=== PATIENT | female | born 1985 | race Caucasian/White ===

== ENCOUNTER 2017-03-26 17:14 | Emergency (ER) | payer OTHER ==
[~2017-03-26] VITALS: Ht 157.5 cm; Wt 98.6 kg
[~2017-03-26 17:14] MED LIST: PRILOSEC40 MG PO; WELLBUTRIN SR150 MG PO; ZYRTEC10 M3 PO
[2017-03-26 18:15] LABS: HEMATOCRIT 40.2 % (36.0-46.0); MCH 26.4 PG (29.0-34.0); MCHC 32.3 G/DL (30.0-36.0); MCV 81.5 FL (83-99); PLATELET COUNT 339 K/uL (156-360); RBC DIS.WIDTH-CV 13.5 % (11.8-14.6); RBC DIS.WIDTH-SD 40.2 % (39-53); RED BLOOD COUNT 4.93 M/uL (3.80-5.20); WHITE BLOOD COUNT 10.6 K/uL (4.1-10.2)
[2017-03-26 18:18] LABS: ADD MIUA? YES; BILIRUBIN NEGATIVE; BLOOD MODERATE; COLOR YELLOW ((YELLOW)); GLUCOSE (STRIP) NEGATIVE; KETONES NEGATIVE; LEUKOCYTES TRACE; NITRITE NEGATIVE; PROTEIN (STRIP) NEGATIVE; SPECIFIC GRAVITY 1.015 (1.000-1.030); UROBILINOGEN 0.2 MG/DL (0.2-1.0)
[2017-03-26 18:26] LABS: CHLORIDE 104 mEq/L (99-109); POTASSIUM 3.7 mEq/L (3.7-5.4); SODIUM 137 mEq/L (136-147)
[2017-03-26 18:28] LABS: GLUCOSE 96 mg/dL (70-99)
[2017-03-26 18:29] LABS: ANION GAP 12 MEQ/L (2-14)
[2017-03-26 18:30] LABS: TOTAL BILIRUBIN 0.4 mg/dL (0.0-1.0)
[2017-03-26 18:32] LABS: ALKALINE PHOSPHATASE 102 IU/L (3-129); GFR ESTIMATE (CALCULATED) > 59 mL/min/
[2017-03-26 18:33] LABS: UREA NITROGEN (BUN) 8 mg/dL (9-23)
[2017-03-26 18:35] LABS: LIPASE 15 U/L (1.0-51.0)
[2017-03-26 18:35] LABS: BACTERIA 1+ /HPF; EPITHELIAL CELLS 1+ /HPF; MUCUS 2+ /LPF; RED BLOOD CELLS 0-5 /HPF (0-5); WHITE BLOOD CELLS 0-5 /HPF (0-5)
[2017-03-26 18:43] LABS: QUANTITATIVE HCG < 4.0 MIU/ML
[2017-03-26] MEDS ORDERED: OMEPRAZOLE40 M1 PO (20:15)
[2017-03-26] MEDS ORDERED: BENTYL20 MG PO (20:15)
[2017-03-26 20:46] VITALS: BP 144/81
== END 2017-03-26 20:46 | disposition home or self-care (01) ==
LOC: EME 17:14
PROVIDERS: Physician Assistant
DX: R10.13 Epigastric pain (principal); Z87.891 Personal history of nicotine dependence; Z90.49 Acquired absence of other specified parts of digestive tract
CPT/HCPCS: 71020; 74176; 80053; 81003; 83690; 84702; 85027; 99281; 99284

== ENCOUNTER 2017-04-05 16:40 | Emergency (ER) | payer OTHER ==
[~2017-04-05] VITALS: Ht 160 cm; Wt 99.9 kg
[~2017-04-05 16:40] MED LIST changes: +BENTYL20 MG PO; +OMEPRAZOLE40 M1 PO
[2017-04-05 17:25] LABS: MCH 25.9 PG (29.0-34.0); MCHC 31.8 G/DL (30.0-36.0); MCV 81.4 FL (83-99); MEAN PLAT.VOLUME 8.8 uM^3 (9.5-12.4); PLATELET COUNT 378 K/uL (156-360); RBC DIS.WIDTH-CV 13.8 % (11.8-14.6); RBC DIS.WIDTH-SD 41.1 % (39-53); RED BLOOD COUNT 4.79 M/uL (3.80-5.20); WHITE BLOOD COUNT 12.8 K/uL (4.1-10.2)
[2017-04-05 17:31] LABS: ADD MIUA? YES; BILIRUBIN NEGATIVE; BLOOD MODERATE; COLOR YELLOW ((YELLOW)); GLUCOSE (STRIP) NEGATIVE; KETONES NEGATIVE; LEUKOCYTES NEGATIVE; NITRITE NEGATIVE; PROTEIN (STRIP) NEGATIVE; SPECIFIC GRAVITY 1.011 (1.000-1.030); UROBILINOGEN 0.2 MG/DL (0.2-1.0)
[2017-04-05 17:37] LABS: CHLORIDE 104 mEq/L (99-109); POTASSIUM 3.7 mEq/L (3.7-5.4); SODIUM 139 mEq/L (136-147)
[2017-04-05 17:39] LABS: GLUCOSE 102 mg/dL (70-99)
[2017-04-05 17:40] LABS: ANION GAP 11 MEQ/L (2-14)
[2017-04-05 17:41] LABS: TOTAL BILIRUBIN 0.4 mg/dL (0.0-1.0)
[2017-04-05 17:43] LABS: ALKALINE PHOSPHATASE 96 IU/L (3-129); GFR ESTIMATE (CALCULATED) > 59 mL/min/
[2017-04-05 17:44] LABS: UREA NITROGEN (BUN) 8 mg/dL (9-23)
[2017-04-05 17:51] LABS: QUANTITATIVE HCG < 4.0 MIU/ML
[2017-04-05 17:54] LABS: BACTERIA 1+ /HPF; CASTS NONE SEEN /LPF; EPITHELIAL CELLS 2+ /HPF; MUCUS NONE SEEN /LPF; RED BLOOD CELLS NONE SEEN /HPF (0-5); UCUL ADDED? NO; WHITE BLOOD CELLS RARE /HPF (0-5)
[2017-04-05] MEDS ORDERED: NORCO 5/3251 TABLET PO (19:53)
[2017-04-05 20:10] VITALS: BP 155/104
== END 2017-04-05 20:12 | disposition home or self-care (01) ==
LOC: EME 16:40
DX: R10.32 Left lower quadrant pain (principal); Z87.891 Personal history of nicotine dependence
CPT/HCPCS: 74177; 80053; 81003; 84702; 85027; 99281; 99284; J7030

== ENCOUNTER 2017-04-08 20:30 | Emergency (ER) | payer OTHER ==
[~2017-04-08] VITALS: Ht 157.5 cm; Wt 99.0 kg
[~2017-04-08 20:30] MED LIST changes: +NORCO 5/3251 TABLET PO
[2017-04-08 21:36] LABS: ADD MIUA? YES; BILIRUBIN SMALL; BLOOD NEGATIVE; GLUCOSE (STRIP) 50; KETONES 5; LEUKOCYTES NEGATIVE; NITRITE NEGATIVE; PROTEIN (STRIP) 100; SPECIFIC GRAVITY 1.043 (1.000-1.030)
[2017-04-08 21:40] LABS: COLOR DK YELLOW ((YELLOW))
[2017-04-08 21:56] LABS: BACTERIA 2+ /HPF; RED BLOOD CELLS 0-5 /HPF (0-5); UCUL ADDED? YES; WHITE BLOOD CELLS 0-5 /HPF (0-5)
[2017-04-08 21:57] LABS: MUCUS 2+ /LPF
[2017-04-08 21:58] LABS: AMORPHOUS URATES CRYSTALS RARE; CASTS PRESENT /LPF; CRYSTALS PRESENT; EPITHELIAL CELLS 3+ /HPF; FINE GRANULAR CASTS RARE /LPF
[2017-04-08 22:27] LABS: HEMATOCRIT 32.4 % (36.0-46.0); MCH 26.4 PG (29.0-34.0); MCHC 32.4 G/DL (30.0-36.0); MCV 81.4 FL (83-99); MEAN PLAT.VOLUME 8.8 uM^3 (9.5-12.4); PLATELET COUNT 357 K/uL (156-360); RBC DIS.WIDTH-CV 13.8 % (11.8-14.6); RBC DIS.WIDTH-SD 40.8 % (39-53); RED BLOOD COUNT 3.98 M/uL (3.80-5.20); WHITE BLOOD COUNT 17.7 K/uL (4.1-10.2)
[2017-04-08 22:38] LABS: CHLORIDE 104 mEq/L (99-109); POTASSIUM 4.1 mEq/L (3.7-5.4); SODIUM 135 mEq/L (136-147)
[2017-04-08 22:40] LABS: GLUCOSE 145 mg/dL (70-99)
[2017-04-08 22:41] LABS: ANION GAP 10 MEQ/L (2-14)
[2017-04-08 22:43] LABS: ALKALINE PHOSPHATASE 92 IU/L (3-129)
[2017-04-08 22:44] LABS: GFR ESTIMATE (CALCULATED) > 59 mL/min/
[2017-04-08 22:45] LABS: UREA NITROGEN (BUN) 13 mg/dL (9-23)
[2017-04-08 22:48] LABS: TOTAL BILIRUBIN 0.3 mg/dL (0.0-1.0)
[2017-04-08 22:53] LABS: QUANTITATIVE HCG < 4.0 MIU/ML
[2017-04-09 02:31] LABS: HEMATOCRIT 27.4 % (36.0-46.0); MCV 81.8 FL (83-99)
[2017-04-09] MEDS ORDERED: ENDOCET 5-3251 EACH PO ×2 (05:17→13:27)
[2017-04-09] MEDS ORDERED: IBUPROFEN800 MG PO (05:17)
[2017-04-09 06:41] VITALS: BP 113/62
[2017-04-09 07:45] VITALS: BP 111/65
[2017-04-09 10:40] VITALS: BP 107/70
[2017-04-09] MEDS ORDERED: WELLBUTRIN XL150 MG PO (10:49)
[2017-04-09] MEDS ORDERED: PROZAC20 MG PO (10:50)
[2017-04-09] MEDS ORDERED: ZANTAC150 MG PO (10:51)
[2017-04-09] MEDS ORDERED: NORCO 5/3251 TABLET PO (10:52)
[2017-04-09 11:29] LABS: EOSINOPHIL (%) 0.1 % (0-5); IMMATURE GRANULOCYTE (%) 0.5 % (0.0-0.7); IMMATURE GRANULOCYTE COUNT 0.1 K/uL; INSTRUMENT ABS NEUTROPHIL CT 10.2 K/uL; LYMPHOCYTE COUNT 2.1 K/uL (1.0-2.8); MCH 26.7 PG (29.0-34.0); MCHC 32.5 G/DL (30.0-36.0); MCV 82.2 FL (83-99); MEAN PLAT.VOLUME 8.8 uM^3 (9.5-12.4); MONOCYTE (%) 7.2 % (3-12); NEUTROPHIL (%) 76.4 % (45-76); NEUTROPHIL COUNT 10.2 K/uL (1.8-6.4); PLATELET COUNT 276 K/uL (156-360); RBC DIS.WIDTH-CV 14.1 % (11.8-14.6); RBC DIS.WIDTH-SD 42.1 % (39-53); WHITE BLOOD COUNT 13.4 K/uL (4.1-10.2)
[2017-04-09 11:30] LABS: RED BLOOD COUNT 2.92 M/uL (3.80-5.20)
[2017-04-09] MEDS ORDERED: STOOL SOFTENER100 MG PO (13:39)
[2017-04-09] MEDS ORDERED: VITRON-C TABLE1 EACH PO (13:39)
[2017-04-10 13:36] LABS: CHLAMYDIA TRACHOMATIS NEGATIVE; NEISSERIA GONORRHOEAE NEGATIVE
== END 2017-04-09 14:57 | disposition home or self-care (01) ==
LOC: EME 20:30 → EDOF 04-09 03:10 → 2EASTP 04-09 03:10 → ENRESERV 04-09 03:18 → EDOF 04-09 04:50 → 2EASTP 04-09 06:17
PROVIDERS: Obstetrics & Gynecology; Physician Assistant
PROC: 0W9F4ZZ Drainage of Abdominal Wall, Percutaneous Endoscopic Approach (ICD-10-PCS; principal; 2017-04-09)
DX: N83.201 Unspecified ovarian cyst, right side (principal); K66.1 Hemoperitoneum; R11.2 Nausea with vomiting, unspecified; D72.829 Elevated white blood cell count, unspecified; K21.9 Gastro-esophageal reflux disease without esophagitis; D64.9 Anemia, unspecified; R73.03 Prediabetes; Z87.891 Personal history of nicotine dependence
CPT/HCPCS: 74177; 76856; 80053; 81003; 84702; 85014; 85018; 85025; 85027; 86900; 86901; 86920; 87086; 87210; 87491; 87591; 99281; 99285; G0378; J1170; J2250; J2405; J3010; J7030; J7120

== ENCOUNTER 2017-05-20 08:42 | Emergency (ER) | payer OTHER ==
[~2017-05-20] VITALS: Ht 157.5 cm; Wt 93.3 kg
[~2017-05-20 08:42] MED LIST changes: +ENDOCET 5-3251 EACH PO; +IBUPROFEN800 MG PO; +PROZAC20 MG PO; +STOOL SOFTENER100 MG PO; +VITRON-C TABLE1 EACH PO; +WELLBUTRIN XL150 MG PO; +ZANTAC150 MG PO
[2017-05-20 09:42] LABS: HEMATOCRIT 35.2 % (36.0-46.0); MCH 24.5 PG (29.0-34.0); MCHC 31.8 G/DL (30.0-36.0); MCV 76.9 FL (83-99); MEAN PLAT.VOLUME 9.1 uM^3 (9.5-12.4); PLATELET COUNT 430 K/uL (156-360); RBC DIS.WIDTH-CV 13.8 % (11.8-14.6); RBC DIS.WIDTH-SD 38.3 % (39-53); RED BLOOD COUNT 4.58 M/uL (3.80-5.20); WHITE BLOOD COUNT 10.1 K/uL (4.1-10.2)
[2017-05-20 09:53] LABS: CHLORIDE 102 mEq/L (99-109); POTASSIUM 3.1 mEq/L (3.7-5.4); SODIUM 139 mEq/L (136-147)
[2017-05-20 09:55] LABS: GLUCOSE 114 mg/dL (70-99)
[2017-05-20 09:56] LABS: ANION GAP 12 MEQ/L (2-14)
[2017-05-20 09:57] LABS: TOTAL BILIRUBIN 0.4 mg/dL (0.0-1.0)
[2017-05-20 09:58] LABS: ALKALINE PHOSPHATASE 111 IU/L (3-129)
[2017-05-20 09:59] LABS: GFR ESTIMATE (CALCULATED) > 59 mL/min/
[2017-05-20 10:00] LABS: UREA NITROGEN (BUN) 6 mg/dL (9-23)
[2017-05-20 10:10] LABS: QUANTITATIVE HCG < 4.0 MIU/ML
[2017-05-20 11:10] LABS: ADD MIUA? YES; BILIRUBIN NEGATIVE; BLOOD MODERATE; COLOR YELLOW ((YELLOW)); GLUCOSE (STRIP) NEGATIVE; KETONES 20; LEUKOCYTES NEGATIVE; NITRITE NEGATIVE; PROTEIN (STRIP) 30; SPECIFIC GRAVITY 1.023 (1.000-1.030); UROBILINOGEN 0.2 MG/DL (0.2-1.0)
[2017-05-20 11:18] LABS: MAGNESIUM 2.2 mg/dL (1.3-2.7)
[2017-05-20 11:24] LABS: BACTERIA RARE /HPF; EPITHELIAL CELLS 1+ /HPF; MUCUS 4+ /LPF; UCUL ADDED? NO; WHITE BLOOD CELLS 0-5 /HPF (0-5)
[2017-05-20 11:25] LABS: LIPASE 11 U/L (1.0-51.0)
[2017-05-20] MEDS ORDERED: REGLAN10 MG PO (12:03)
[2017-05-20] MEDS ORDERED: ZANTAC150 MG PO (12:03)
[2017-05-20] MEDS ORDERED: COMPAZINE25 M1 PR (12:03)
[2017-05-20 12:21] VITALS: BP 126/79
== END 2017-05-20 12:22 | disposition home or self-care (01) ==
LOC: EME 08:42
DX: K21.9 Gastro-esophageal reflux disease without esophagitis (principal); R11.2 Nausea with vomiting, unspecified; R07.9 Chest pain, unspecified; Z87.891 Personal history of nicotine dependence
CPT/HCPCS: 80053; 81003; 83690; 83735; 84702; 85027; 93005; 99281; 99284; J1200; J2765; J7030; S0028